=== PATIENT | female | born 1945 | race Caucasian/White ===

== ENCOUNTER 2017-05-25 08:45 | Day surgery (SDC) | payer MEDICARE ==
[2017-05-25 11:42] VITALS: BP 136/67
== END 2017-05-25 10:51 | disposition home or self-care (01) ==
LOC: SDC 08:45
PROVIDERS: Ophthalmology
PROC: 085K3ZZ Destruction of Left Lens, Percutaneous Approach (ICD-10-PCS; principal; 2017-05-25 09:00)
DX: H26.40 Unspecified secondary cataract (principal)